=== PATIENT | male | born 1995 | race Caucasian/White ===

== ENCOUNTER 2017-05-11 13:58 | Emergency (ER) | payer OTHER ==
[~2017-05-11] VITALS: Ht 177.8 cm; Wt 69.1 kg
[2017-05-11 15:53] VITALS: BP 131/86
== END 2017-05-11 15:55 | disposition home or self-care (01) ==
LOC: ED 15:49
DX: L20.9 Atopic dermatitis, unspecified (principal)
CPT/HCPCS: 99283